=== PATIENT | male | born 1990 | race Caucasian/White ===

== ENCOUNTER 2022-02-10 16:26 | Emergency (ER) | payer SELFPAY ==
[2022-02-10 16:40] VITALS: BP 145/74; PULSE 97; RESP 16; TEMP 36.9; O2SAT 100
--- NOTE | 2022-02-10 16:51 | ED.WOUNDLAC ---
HPI - Wound/Laceration General Chief Complaint: Wound/Laceration Stated Complaint: Laceration to Left Leg Time Seen by Provider: 02/10/22 17:00 Source: patient and RN notes reviewed Mode of arrival: ambulatory Limitations: no limitations History of Present Illness HPI narrative: 31-year-old male presents with concern for laceration to his left leg. He reports a 2:00 a.m. this afternoon he was cutting a cement board when the grinding wheel skipped and hit his leg. He reports his last tetanus shot was in 2014. No current bleeding Related Data Home Medications Medication Instructions Recorded Confirmed No Home Medications 02/10/22 02/10/22 Allergies Allergy/AdvReac Type Severity Reaction Status Date / Time No Known Allergies Allergy Verified 02/10/22 16:57 Review of Systems Review of Systems: CONSTITUTIONAL: Denies malaise, chills, sweats, or fever. SKIN: Reports laceration to left leg MUSCULOSKELETAL: Denies muscle skeletal pain NEUROLOGIC: Denies numbness, weakness All systems reviewed & are unremarkable except as noted in HPI and below PMFSH Comments At time of signature, agree with nursing past medical, surgical, social and family history. There is no relevant family history pertinent to the presenting complaint Exam Narrative: GENERAL: Well-appearing, well-nourished, and in no acute distress. HEAD: Normocephalic, atraumatic. EYES: PERRLA, conjunctivae clear ENT: Mucous membranes moist. NECK: Supple. No lymphadenopathy CHEST: Clear to auscultation. No respiratory distress. HEART: Regular rate and rhythm. SKIN: Warm, dry. 3.5 cm long gaping laceration through the subcutaneous tissue not into the muscle noted to the left anterior thigh with no active bleeding NEURO: Alert and oriented x3. PSYCH: Normal mood and affect Course Course Emergency Course: Patient is aware of diagnosis, understands and agrees to treatment plan. Anticipatory guidance given. Patient agrees to follow-up as directed and is aware of reasons to seek care at the emergency department. Portions of this record may have been created with voice recognition software Level of Care: Express Care Visit Vital Signs Vital signs: Vital Signs Temperature 98.4 F 02/10/22 16:40 Pulse Rate 97 02/10/22 16:40 Respiratory Rate 16 02/10/22 16:40 Blood Pressure 145/74 H 02/10/22 16:40 Pulse Oximetry 100 02/10/22 16:40 Oxygen Delivery Room Air 02/10/22 16:40 Temperature 98.4 F 02/10/22 16:40 Pulse Rate 97 02/10/22 16:40 Respiratory Rate 16 02/10/22 16:40 Blood Pressure 145/74 H 02/10/22 16:40 Pulse Oximetry 100 02/10/22 16:40 Oxygen Delivery Room Air 02/10/22 16:40 Reviewed. Procedures Laceration Laceration 1: Date: 02/10/22 Time: 17:10 Site: lower extremity Side (If applicable): left Size (cm): 3.5 Description: linear Depth: simple, single layer Local Anesthetic: lidocaine 1% Amount of anesthesia used (mL): 4 Pre-repair: wound explored and irrigated extensively ====== Skin Level ====== Skin layer closed with: nylon Size (cm): 4-0 Number of sutures: 6 Technique: simple, interrupted ====== Subcutaneous Layer ====== ====== Muscle Layer ====== ====== Tendon Layer ====== MDM - Wound/Laceration MDM Narrative Medical decision making narrative: Wound explored for foreign body and copious irrigation provided with no evidence of FB. Discussed the potential of retained foreign body with the patient and signs/symptoms that should prompt the patient to immediately go to the ED for reevaluation. The laceration was identified to be 3.5 cm in length and located at left inner thigh. The laceration was cleansed with technique and no debris was noted. Local anesthesia was obtained by injecting 1% lidocaine at the laceration site. The laceration was then irrigated with 500cc of high-pressure irriga
[2022-02-10] MEDS: TETANUS,DIPHTHERIA,AC PERTUSSIS ADULT (0.5 ML) BOOSTRIX IM (17:18)
== END 2022-02-10 17:43 | disposition home or self-care (01) ==
PROVIDERS: Emergency Provider Nurse Practitioner
DX: S81.812A Laceration without foreign body, left lower leg, initial encounter (principal); Z23 Encounter for immunization; W31.1XXA Contact with metalworking machines, initial encounter
CPT/HCPCS: 12002; 90471; 90715; 99212; G0463